=== PATIENT | male | born 1960 | race Two or more races ===

== ENCOUNTER → 2020-04-18 | Outpatient (CLI) | payer BC ==
--- NOTE | 2020-04-18 11:59 | XR ---
EXAMINATION TYPE: XR KUB DATE OF EXAM: 04/18/2020 COMPARISON: NONE HISTORY: Pain TECHNIQUE: One view abdominal series FINDINGS: The osseous structures are intact. The bowel gas pattern is nonspecific. Bilateral hip arthropathy. Degenerative change of the spine. Correlate for femoral acetabular impingement. Sclerosis of the pubi c symphysis. No definite calcifications overlying either renal outline. There are 2 calcifications in the lower pelvis measuring 3.5 mm in diameter. IMPRESSION: 1. Nonspecific abdomen. Left hemipelvic calcifications measuring approximately 3.5 mm in diameter. 2. No definite calcifications overlying either renal outline.
== END | disposition home or self-care (01) ==
LOC: RADXRMAIN 10:06
PROVIDERS: ATTEND Urology
DX: N13.30 Unspecified hydronephrosis (principal); R31.9 Hematuria, unspecified
CPT/HCPCS: 74018